=== PATIENT | female | born 1975 | race Caucasian/White ===

== ENCOUNTER 2019-09-20 21:08 | Emergency (ER) | payer MEDICAID ==
[~2019-09-20] VITALS: Ht 160 cm; Wt 77.3 kg
[~2019-09-20 21:08] MED LIST: NOCURR
[2019-09-20] MEDS ORDERED: SODIUM CHLORIDE 0.9% 1,000 ML IV ONE (21:45)
[2019-09-20] MEDS ORDERED: 0.9% SODIUM CHLORIDE 10 ML SYRINGE IVP PRN (21:45)
[2019-09-20] MEDS ORDERED: ACETAMINOPHEN 325 MG TABLET PO ONE (22:30)
[2019-09-20 22:34] LABS: BASOPHILS % (AUTO) 1.5 % (0.0-2.0); EOSINOPHILS % (AUTO) 3.3 % (1.0-6.0); HEMATOCRIT 32.8 % (36-46); HEMOGLOBIN 10.3 g/dL (12.0-16.0); LYMPHOCYTES # (AUTO) 1.9 K/uL (1.0-4.8); LYMPHOCYTES % (AUTO) 31.4 % (22.0-44.0); MEAN CORPUSCULAR HEMOGLOBIN 19.9 pg (26.0-34.0); MEAN CORPUSCULAR HGB CONC 31.4 G/dL (31.0-37.0); MEAN CORPUSCULAR VOLUME 63 fL (80-100); MONOCYTES # (AUTO) 0.5 K/uL (0.1-1.0); MONOCYTES % (AUTO) 7.5 % (2.0-9.0); NEUTROPHILS # (AUTO) 3.4 K/uL (1.8-7.7); NEUTROPHILS % (AUTO) 56.3 % (40.0-70.0); PLATELET COUNT (AUTO) 346 K/uL (150-450); RED BLOOD CELL COUNT(AUTO) 5.17 MIL/uL (4.00-5.20); RED CELL DISTRIBUTION WIDTH 19.6 % (11.5-14.5)
[2019-09-20 22:45] LABS: ANION GAP 9 mmol/L (8-16); CALCIUM, TOTAL 8.6 mg/dL (8.8-10.5); CARBON DIOXIDE 26 mmol/L (22-29); CHLORIDE 103 mmol/L (98-107); CREATININE 0.81 mg/dL (0.60-1.30); GLOMERULAR FILTR. RATE CALC > 60 mL/min (>60); GLUCOSE,RANDOM 97 mg/dL (70-110); POTASSIUM 3.2 mmol/L (3.5-5.1); SODIUM SERUM 138 mmol/L (136-145); UREA NITROGEN, BLOOD 16 mg/dL (7-18)
[2019-09-20 22:51] LABS: INR 0.9 (0.9-1.1); PROTHROMBIN TIME 9.4 SEC (9.4-11.6)
[2019-09-20 22:53] LABS: LACTIC ACID 0.8 mmol/L (0.4-2.0)
[2019-09-20 22:57] LABS: ALANINE AMINOTRANSFERASE 24 U/L (12-78); ALBUMIN 3.3 g/dL (3.4-5.0); ALKALINE PHOSPHATASE 98 U/L (46-116); ASPARTATE AMINOTRANSFERASE 18 U/L (15-37); BILIRUBIN,TOTAL 0.2 mg/dL (0.1-1.0); HCG,QUANTITATIVE 1 mIU/mL (0-6); TOTAL PROTEIN, SERUM 7.8 g/dL (6.4-8.2)
[2019-09-20 23:04] LABS: APPEARANCE,URINE CLOUDY (CLEAR); BILIRUBIN,URINE NEGATIVE (NEGATIVE); GLUCOSE, URINE (UA) NEGATIVE (NEGATIVE); KETONES,URINE NEGATIVE (NEGATIVE); LEUKOCYTE ESTERASE ,URINE MODERATE (NEGATIVE); NITRATE,URINE NEGATIVE (NEGATIVE); OCCULT BLOOD,URINE NEGATIVE (NEGATIVE); PH,URINE 7.5 (5.0-8.0); PROTEIN,URINE NEGATIVE (NEGATIVE)
[2019-09-20 23:06] LABS: PLATELET MORPHOLOGY COMMENT GIANT PLTS PRESENT
[2019-09-20 23:17] LABS: BACTERIA,URINE Few /HPF (None Seen); RBC,URINE None Seen /HPF (0-2); SQUAMOUS EPITHELIAL CELL,UR Few /LPF (None Seen); YEAST,URINE None Seen /HPF (None Seen)
[2019-09-21 01:04] VITALS: BP 122/80
== END 2019-09-21 02:31 | disposition home or self-care (01) ==
LOC: EMS 21:09
DX: U07.1 COVID-19 (principal); B34.9 Viral infection, unspecified; J02.9 Acute pharyngitis, unspecified; R05 Cough; Z90.89 Acquired absence of other organs
CPT/HCPCS: 36415; 71045; 80053; 81001; 83605; 84702; 85025; 85610; 87040; 93005; 99285; U0003

== ENCOUNTER 2019-11-20 02:40 | Emergency (ER) | payer MEDICAID ==
[~2019-11-20] VITALS: Ht 157.5 cm; Wt 67.7 kg
[2019-11-20] MEDS ORDERED: MORPHINE SULFATE 15 MG IR TABLET PO ONE (03:45)
[2019-11-20] MEDS ORDERED: LIDOCAINE 5% TRANSDERMAL PATCH TD ONE (04:00)
[2019-11-20 04:41] VITALS: BP 119/77
== END 2019-11-20 05:20 | disposition home or self-care (01) ==
LOC: EMS 02:40
DX: S49.91XA Unspecified injury of right shoulder and upper arm, initial encounter (principal); G89.29 Other chronic pain; Z90.89 Acquired absence of other organs; W06.XXXA Fall from bed, initial encounter; Y93.89 Activity, other specified; Y92.89 Other specified places as the place of occurrence of the external cause; Y99.8 Other external cause status

== ENCOUNTER 2020-12-31 15:34 | Emergency (ER) | payer MEDICAID | END 2020-12-31 16:11 | disposition left against medical advice (07) | LOC: EMS 15:38 | DX: R10.2 Pelvic and perineal pain (principal); Z53.21 Procedure and treatment not carried out due to patient leaving prior to being seen by health care provider ==

== ENCOUNTER 2021-06-18 10:57 | Emergency (ER) | payer MEDICAID ==
[~2021-06-18] VITALS: Ht 160 cm; Wt 63.6 kg
[2021-06-18 11:37] VITALS: BP 115/84
== END 2021-06-18 13:17 | disposition home or self-care (01) ==
LOC: EMS 10:59
DX: S93.601A Unspecified sprain of right foot, initial encounter (principal); F17.210 Nicotine dependence, cigarettes, uncomplicated; Z90.89 Acquired absence of other organs; X58.XXXA Exposure to other specified factors, initial encounter; Y93.89 Activity, other specified; Y92.89 Other specified places as the place of occurrence of the external cause; Y99.8 Other external cause status
CPT/HCPCS: 99283

== ENCOUNTER 2023-05-23 18:23 | Emergency (ER) | payer MEDICAID ==
[~2023-05-23] VITALS: Ht 160 cm; Wt 51.4 kg
[2023-05-23 19:07] VITALS: BP 126/79; PULSE 93; RESP 18; TEMP 98
[2023-05-23] MEDS ORDERED: AMOX500C2 PO (20:50)
[2023-05-23] MEDS: AMOXICILLIN TRIHYDRATE 250 MG CAPSULE PO ONE (21:30)
== END 2023-05-23 21:52 | disposition home or self-care (01) ==
LOC: EMS 18:31
DX: L01.00 Impetigo, unspecified (principal); F17.210 Nicotine dependence, cigarettes, uncomplicated; Z90.49 Acquired absence of other specified parts of digestive tract
CPT/HCPCS: 99283

== ENCOUNTER 2023-12-15 11:01 | Emergency (ER) | payer MEDICAID ==
[~2023-12-15] VITALS: Ht 152.4 cm; Wt 54.5 kg
[~2023-12-15 11:01] MED LIST changes: +AMOX500C2 PO
[2023-12-15 11:07] VITALS: BP 103/66; PULSE 87; RESP 20; TEMP 99; O2SAT 98
[2023-12-15] MEDS ORDERED: DOXY50 PO (11:41)
[2023-12-15] MEDS: DOXYCYCLINE HYCLATE 100 MG TABLET PO ONE (11:54)
== END 2023-12-15 12:04 | disposition home or self-care (01) ==
LOC: EMS 11:03
DX: L03.115 Cellulitis of right lower limb (principal); F17.210 Nicotine dependence, cigarettes, uncomplicated
CPT/HCPCS: 99283; 99406

== ENCOUNTER 2024-10-12 18:06 | Emergency (ER) | payer MEDICAID ==
[~2024-10-12] VITALS: Ht 153 cm; Wt 58.2 kg
[~2024-10-12 18:06] MED LIST changes: -AMOX500C2 PO; +DOXY50 PO; -NOCURR
[2024-10-12 18:42] LABS: PLATELET COUNT (AUTO) 329 K/uL (150-450); RED BLOOD CELL COUNT(AUTO) 4.70 MIL/uL (4.00-5.20); RED CELL DISTRIBUTION WIDTH 19.9 % (11.5-14.5); WHITE BLOOD COUNT (AUTO) 5.0 K/uL (4.5-11.0)
[2024-10-12 18:50] LABS: CALCIUM, TOTAL 8.8 mg/dL (8.8-10.5); CREATININE 0.74 mg/dL (0.60-1.30); GLOMERULAR FILTR. RATE CALC > 60 mL/min (>60); GLUCOSE,RANDOM 95 mg/dL (70-110); SODIUM SERUM 140 mmol/L (136-145); UREA NITROGEN, BLOOD 13 mg/dL (7-18)
[2024-10-12 18:51] VITALS: TEMP 97.5
[2024-10-12 19:01] LABS: TROPONIN I-HIGH SENSITIVITY Less Than 4 ng/L (<51)
[2024-10-12 19:10] LABS: PLATELET MORPHOLOGY COMMENT LARGE PLTS PRESENT; RBC MORPHOLOGY COMMENT ABNORMAL RBC MORPH
[2024-10-12 19:12] LABS: PATHOLOGY REVIEW, DIFF YES
[2024-10-12 20:10] VITALS: BP 133/80; PULSE 78; RESP 20; O2SAT 100
[2024-10-12 20:34] LABS: APPEARANCE,URINE HAZY (CLEAR); GLUCOSE, URINE (UA) NEGATIVE (NEGATIVE); LEUKOCYTE ESTERASE ,URINE LARGE (NEGATIVE); NITRATE,URINE NEGATIVE (NEGATIVE); OCCULT BLOOD,URINE NEGATIVE (NEGATIVE); SPECIFIC GRAVITIY, URINE 1.025 (1.003-1.030)
[2024-10-12] MEDS: ACETAMINOPHEN 500 MG TABLET PO ONE (20:48)
[2024-10-12] MEDS: PB/HYOSCY/ATR/SCOP/LIDO/MAALOX 55 ML BOTTLE PO ONE (20:48)
[2024-10-12] MEDS: DIPHENOXYLATE/ATROP 2.5-0.025 MG TABLET PO ONE (20:50)
[2024-10-12] MEDS ORDERED: MAG30ORA11 PO (20:57)
[2024-10-12] MEDS ORDERED: DIPH-1130 PO (20:57)
[2024-10-12] MEDS ORDERED: OMEP-148 PO (20:57)
[2024-10-12] MEDS ORDERED: ACET-66 PO (20:57)
[2024-10-12 21:08] LABS: SQUAMOUS EPITHELIAL CELL,UR Moderate /LPF (None Seen)
== END 2024-10-12 21:10 | disposition home or self-care (01) ==
LOC: EMS 18:10
DX: K52.9 Noninfective gastroenteritis and colitis, unspecified (principal); F17.210 Nicotine dependence, cigarettes, uncomplicated; Z90.49 Acquired absence of other specified parts of digestive tract; Z79.899 Other long term (current) drug therapy
CPT/HCPCS: 80048; 81001; 83690; 84484; 85025; 87086; 93005; 99284